=== PATIENT | female | born 1990 | race African-American/Black ===

== ENCOUNTER 2020-08-06 13:51 | Emergency (ER) | payer MEDICAID ==
[~2020-08-06] VITALS: Ht 162.6 cm; Wt 52.0 kg
[2020-08-06] MEDS ORDERED: DIPH25CA83 PO (15:14)
[2020-08-06] MEDS ORDERED: HYDR28.462 TP (15:14)
[2020-08-06] MEDS ORDERED: SULF1TAB48 PO (15:14)
[2020-08-06 15:23] VITALS: BP 103/64
== END 2020-08-06 15:24 | disposition home or self-care (01) ==
LOC: ER 14:32
DX: S90.561A Insect bite (nonvenomous), right ankle, initial encounter (principal); S70.362A Insect bite (nonvenomous), left thigh, initial encounter; Z79.899 Other long term (current) drug therapy; Z98.890 Other specified postprocedural states; W57.XXXA Bitten or stung by nonvenomous insect and other nonvenomous arthropods, initial encounter; Y93.89 Activity, other specified; Y92.89 Other specified places as the place of occurrence of the external cause; Y99.8 Other external cause status
CPT/HCPCS: 99282; 99283

== ENCOUNTER 2021-09-08 07:54 | Emergency (ER) | payer MEDICAID ==
[~2021-09-08] VITALS: Ht 162.6 cm; Wt 55.0 kg
[~2021-09-08 07:54] MED LIST: DIPH25CA83 PO; HYDR28.462 TP; SULF1TAB48 PO
[2021-09-08 08:01] VITALS: BP 125/81
[2021-09-08] MEDS ORDERED: NITR-87 MT (19:49)
== END 2021-09-08 08:44 | disposition left against medical advice (07) ==
LOC: ER 08:01
DX: Z53.21 Procedure and treatment not carried out due to patient leaving prior to being seen by health care provider (principal)

== ENCOUNTER 2021-09-08 16:34 | Emergency (ER) | payer MEDICAID ==
[~2021-09-08] VITALS: Ht 162.6 cm; Wt 55.0 kg
[2021-09-08 19:19] LABS: CLARITY URINE CLEAR (CLEAR); COLOR URINE YELLOW (YELLOW); KETONES URINE TRACE (NEGATIVE); LEUKOCYTE ESTERASE URINE 2+ (NEGATIVE); NITRITE URINE POSITIVE (NEGATIVE); OCCULT BLOOD URINE NEGATIVE (NEGATIVE); PH URINE 6.5 (4.5-8.0); PROTEIN URINE NEGATIVE (NEGATIVE)
[2021-09-08] MEDS ORDERED: NITR-87 MT (19:49)
[2021-09-08 20:28] VITALS: BP 112/75
== END 2021-09-08 20:30 | disposition home or self-care (01) ==
LOC: ER 16:55
DX: N39.0 Urinary tract infection, site not specified (principal)
CPT/HCPCS: 81003; 81025; 99283

== ENCOUNTER 2021-09-27 11:33 | Emergency (ER) | payer MEDICAID ==
[~2021-09-27] VITALS: Ht 162.6 cm; Wt 55.0 kg
[~2021-09-27 11:33] MED LIST changes: +NITR-87 MT
[2021-09-27 11:48] VITALS: BP 109/64
[2021-09-27 13:41] LABS: BASOPHILS % 1.1 % (0.0-2.0); EOSINOPHILS % 0.7 % (0.0-5.0); HEMATOCRIT. 37.3 % (36.0-48.0); HEMOGLOBIN. 12.3 g/dL (12.0-16.0); MEAN CORPUSCULAR HEMOGLOBIN 27.9 pg (28.0-32.0); MEAN CORPUSCULAR VOLUME 84.6 fL (81.0-99.0); MEAN PLATELET VOLUME 8.3 fl (7.4-10.4); MONOCYTES % 7.5 % (2.0-8.0); NEUTROPHILS % 64.7 % (40.0-76.0); PLATELET 242 x1000/uL (130-400); RED BLOOD CELL COUNT 4.41 mill/uL (4.2-5.4); RED CELL DISTRIBUTION WIDTH 14.1 % (11.6-14.6)
[2021-09-27 13:46] LABS: CLARITY URINE CLEAR (CLEAR); COLOR URINE YELLOW (YELLOW); KETONES URINE 1+ (NEGATIVE); LEUKOCYTE ESTERASE URINE NEGATIVE (NEGATIVE); NITRITE URINE NEGATIVE (NEGATIVE); OCCULT BLOOD URINE NEGATIVE (NEGATIVE); PH URINE 7.5 (4.5-8.0); PROTEIN URINE NEGATIVE (NEGATIVE); SPECIFIC GRAVITY URINE 1.007 (1.005-1.030); UROBILINOGEN URINE 0.2 E.U./dL (0.2-1.0)
[2021-09-27 13:55] LABS: CHLORIDE 102 mEq/L (98-107)
[2021-09-27] MEDS ORDERED: PHEN95TA25 MT (14:46)
[2021-09-27] MEDS ORDERED: ONDANSETRON 4MG ODT PO ONE (15:15)
[2021-09-28] MEDS ORDERED: DOXY1TAB3 MT (14:51)
== END 2021-09-27 17:45 | disposition home or self-care (01) ==
LOC: ER 11:33
DX: O23.41 Unspecified infection of urinary tract in pregnancy, first trimester (principal); N39.0 Urinary tract infection, site not specified; Z3A.01 Less than 8 weeks gestation of pregnancy
CPT/HCPCS: 36415; 76801; 76817; 80048; 81003; 81025; 84702; 85025; 99284; Q0162

== ENCOUNTER 2022-02-09 07:44 | Emergency (ER) | payer MEDICAID ==
[~2022-02-09] VITALS: Ht 157.5 cm; Wt 60.0 kg
[~2022-02-09 07:44] MED LIST changes: +DOXY1TAB3 MT; +PHEN95TA25 MT
[2022-02-09 07:47] VITALS: BP 123/81
[2022-02-09 08:11] LABS: CLARITY URINE CLEAR (CLEAR); COLOR URINE DARK YELLOW (YELLOW); KETONES URINE NEGATIVE (NEGATIVE); LEUKOCYTE ESTERASE URINE NEGATIVE (NEGATIVE); NITRITE URINE POSITIVE (NEGATIVE); OCCULT BLOOD URINE NEGATIVE (NEGATIVE); PROTEIN URINE TRACE (NEGATIVE); SPECIFIC GRAVITY URINE 1.014 (1.005-1.030)
[2022-02-09] MEDS ORDERED: CIPR-263 MT (11:04)
== END 2022-02-09 11:30 | disposition home or self-care (01) ==
LOC: ER 07:44
DX: N39.0 Urinary tract infection, site not specified (principal)
CPT/HCPCS: 81003; 81025; 99283